=== PATIENT | male | born 1985 | race Caucasian/White ===

== ENCOUNTER 2016-09-16 18:27 | Emergency (ER) | payer OTHER ==
[~2016-09-16] VITALS: Ht 162.6 cm; Wt 51.0 kg
[~2016-09-16 18:27] MED LIST: ADDERALL XR 1515 MG PO; AURALGAN14.8 ML BOTH EARS; DOXYCYCLINE HY100 MG PO; FIORICET,ESG1 TABLET PO; FLOMAX0.4 MG PO; INDERAL80 MG PO; LITHIUM CARBON300 M2 PO; NAPROSYN500 MG PO; NO HOME MEDS; NOHOMEMEDS; PERCOCET 7.51 TABLE1 PO; PREDNISONE50 MG PO; PROMETHAZINE HC25 M1 PO; REMERON15 M2 PO; Remeron PO
[2016-09-16] MEDS ORDERED: AMOXICILLIN875 MG PO (19:25)
[2016-09-16] MEDS ORDERED: MOTRIN600 MG PO (19:25)
[2016-09-16 19:36] VITALS: BP 145/80
== END 2016-09-16 19:38 | disposition home or self-care (01) ==
LOC: EME 18:27
DX: K04.7 Periapical abscess without sinus (principal); K02.9 Dental caries, unspecified; F17.200 Nicotine dependence, unspecified, uncomplicated
CPT/HCPCS: 99281; 99283

== ENCOUNTER 2016-12-16 17:48 | Emergency (ER) | payer SELFPAY ==
[~2016-12-16] VITALS: Ht 165.1 cm; Wt 50.8 kg
[~2016-12-16 17:48] MED LIST changes: +AMOXICILLIN875 MG PO; +MOTRIN600 MG PO
[2016-12-16] MEDS ORDERED: BENADRYL50 MG PO (19:07)
[2016-12-16] MEDS ORDERED: PREDNISONE20 MG PO (19:07)
[2016-12-16 19:45] VITALS: BP 148/66
== END 2016-12-16 19:46 | disposition home or self-care (01) ==
LOC: EME 17:48
DX: L23.7 Allergic contact dermatitis due to plants, except food (principal); F17.200 Nicotine dependence, unspecified, uncomplicated
CPT/HCPCS: 99281; 99284; J7512